=== PATIENT | male | born 1935 | race Caucasian/White ===

== ENCOUNTER → 2017-04-05 | Outpatient (CLI) | payer MEDICARE, OTHER ==
[~2017-04-05] MED LIST: ATOR20TA PO; FEXO60TA24 PO; RABE20TA18 PO
== END | disposition home or self-care (01) ==
LOC: STAR 09:36
PROVIDERS: ATTEND Otolaryngology
DX: Z01.818 Encounter for other preprocedural examination (principal); D49.1 Neoplasm of unspecified behavior of respiratory system
CPT/HCPCS: 93005

== ENCOUNTER 2017-04-10 08:50 | Day surgery (SDC) | payer MEDICARE, OTHER ==
[2017-04-05 10:29] VITALS: BP 160/79
[~2017-04-10] VITALS: Ht 172.7 cm; Wt 69.1 kg
[~2017-04-10 08:50] MED LIST changes: -FEXO60TA24 PO; +LIDOCAINE/PF 1%-EPI 1:200K, 30 ML ONE
[2017-04-10] MEDS ORDERED: LACTATED RINGERS 1,000 ML IV SCH (09:18)
[2017-04-10 09:19] VITALS: BP 160/79
[2017-04-10] MEDS ORDERED: FEXO60TA24 PO (09:23)
[2017-04-10] MEDS ORDERED: EPHEDRINE 50 MG/ML, 1ML ONE (10:30)
[2017-04-10] MEDS ORDERED: FENTANYL PF 100 MCG/2ML ONE (10:32)
[2017-04-10] MEDS ORDERED: ONDANSETRON 2MG/ML, 2ML ONE ×2 (10:33)
[2017-04-10] MEDS ORDERED: SUCCINYLCHOLINE 20 MG/ML, 10ML ONE (10:33)
[2017-04-10] MEDS ORDERED: DEXAMETHASONE 4 MG/ML, 1ML ONE ×2 (10:33)
[2017-04-10] MEDS ORDERED: PROPOFOL 10 MG/ML, 20ML ONE (10:33)
[2017-04-10] MEDS ORDERED: CEFAZOLIN 1,000 MG ONE ×2 (10:33)
[2017-04-10] MEDS ORDERED: ROCURONIUM 10MG/ML,5ML ONE (10:33)
[2017-04-10] MEDS ORDERED: OXYMETAZOLINE NASAL SPRAY 0.05%, 15ML NAS ONE (10:57)
[2017-04-10] MEDS ORDERED: LIDOCAINE/PF 1%-EPI 1:200K, 30 ML INFIL ONE (10:57)
[2017-04-10] MEDS ORDERED: GLYCOPYRROLATE 0.4 MG/2 ML, 2ML ONE (11:09)
[2017-04-10] MEDS ORDERED: OXYcodone 5 MG/5 ML ORAL.SOL UDC PO PRN (11:30)
[2017-04-10] MEDS ORDERED: PROMETHAZINE 25 MG/ML, 1ML IV PRN (11:30)
[2017-04-10] MEDS ORDERED: FENTANYL PF 100 MCG/2ML IV PRN (11:30)
[2017-04-10] MEDS ORDERED: MEPERIDINE/PF 25MG/0.5ML IVPush PRN (11:30)
[2017-04-10] MEDS ORDERED: HYDROmorphone 1 MG/ML, 1ML IV PRN (11:30)
[2017-04-10] MEDS ORDERED: ACETAMINOPHEN 325 MG TABLET PO PRN (11:30)
[2017-04-10] MEDS ORDERED: LABETALOL 5MG/ML, 20ML IV PRN (11:30)
[2017-04-10] MEDS ORDERED: MIDAZOLAM 1 MG/ML, 2ML IV PRN (11:30)
[2017-04-10] MEDS ORDERED: ALBUTEROL SULFATE 2.5 MG/3 ML NPPB PRN (11:30)
[2017-04-10] MEDS ORDERED: hydrALAzine 20 MG/ML, 1ML IV PRN (11:30)
[2017-04-10] MEDS ORDERED: ONDANSETRON 2MG/ML, 2ML IVPush PRN (11:30)
[2017-04-10] MEDS ORDERED: OXYMETAZOLINE NASAL SPRAY 0.05%, 15ML ONE (15:26)
== END 2017-04-10 13:28 | disposition home or self-care (01) ==
LOC: OUT 08:50
PROVIDERS: ATTEND Otolaryngology
DX: D18.09 Hemangioma of other sites (principal); N40.0 Benign prostatic hyperplasia without lower urinary tract symptoms; K21.9 Gastro-esophageal reflux disease without esophagitis; Z98.890 Other specified postprocedural states; Z72.89 Other problems related to lifestyle; E78.5 Hyperlipidemia, unspecified
CPT/HCPCS: 31237; 88305; 88331; J0330; J0690; J1100; J2405; J2704; J3010; J3490; J7120

== ENCOUNTER 2017-04-10 18:29 | Emergency (ER) | payer MEDICARE, OTHER ==
[~2017-04-10] VITALS: Ht 172.7 cm; Wt 72.1 kg
[~2017-04-10 18:29] MED LIST changes: +FEXO60TA24 PO; -LIDOCAINE/PF 1%-EPI 1:200K, 30 ML ONE
[2017-04-10 18:52] LABS: HEMATOCRIT 46.5 % (39.2-51.8); HEMOGLOBIN 15.7 g/dL (13.7-18.0); WHITE BLOOD COUNT 6.6 x10^3/uL (3.4-10)
[2017-04-10 19:04] LABS: BLOOD UREA NITROGEN 17 mg/dL (7-18)
[2017-04-10 19:22] LABS: PATH.CAST-FLAG NOT PRESENT; SPERM-FLAG NOT PRESENT; SRC-FLAG NOT PRESENT; XTAL-FLAG NOT PRESENT; YLC-FLAG NOT PRESENT
[2017-04-10 20:19] VITALS: BP 129/70
== END 2017-04-10 20:28 | disposition home or self-care (01) ==
LOC: ED 20:10
DX: R33.0 Drug induced retention of urine (principal); T50.905A Adverse effect of unspecified drugs, medicaments and biological substances, initial encounter; N40.0 Benign prostatic hyperplasia without lower urinary tract symptoms; Y92.89 Other specified places as the place of occurrence of the external cause
CPT/HCPCS: 36415; 51702; 80048; 81001; 82040; 85025; 99284